=== PATIENT | female | born 1980 | race Caucasian/White ===

== ENCOUNTER 2016-04-25 10:17 | Emergency (ER) | payer SELFPAY ==
[~2016-04-25] VITALS: Ht 152.4 cm; Wt 103.0 kg
[~2016-04-25 10:17] MED LIST: TRAM50 PO
[2016-04-25 10:18] VITALS: BP 150/85; PULSE 92; RESP 20; TEMP 97.9; O2SAT 100
--- NOTE | 2016-04-25 11:25 | PD ---
HPI Chief Complaint: Musculoskeletal Complaint Time Seen by Provider: 11:25 Travel History International Travel<30 days: No Contact w/Intl Traveler<30days: No Traveled to known affect area: No History of Present Illness HPI 35 year-old female presents for evaluation left anterior shoulder pain. Patient states that she has had problems with this in the past but believes she may have slept on it wrong the other day. She woke up yesterday with significant shoulder pain. Pain was exacerbated by abduction. She iced it and took some ibuprofen and felt like it was doing okay but then was woken up suddenly this morning with a severe pain in her left shoulder and felt like she could barely move it secondary to the pain. She is not taking anything for today. Denies any fever or chills. No chest tightness. No difficulty breathing. No alterations in sensation in the distal affected extremity. No other symptoms to report. PFSH Past Medical History Anemia: Yes Arthritis: Yes (L HAND) Anxiety: Yes Diminished Hearing: No : 2 Ovarian Cysts: Yes Past Surgical History Section: Yes (2) Cholecystectomy: Yes Gynecologic Surgery: Yes () Tonsillectomy: Yes Social History Alcohol Use: Yes (OCCASIONALLY) Tobacco Use: Yes Substance Use: No Allergies-Medications (Allergen,Severity, Reaction): Coded Allergies: Benadryl (Verified Allergy, Unknown, 04/25/16) Reported Meds & Prescriptions Reported Meds & Active Scripts Active Mobic (Meloxicam) 15 Mg Tab 15 Mg PO DAILY PRN Ultram (Tramadol HCl) 50 Mg Tab 50 Mg PO Q6 PRN Review of Systems Except as stated in HPI: all other systems reviewed are Neg Physical Exam Narrative GENERAL: Well-nourished, well-developed email patient ambulatory and in no acute distress SKIN: Warm and dry. HEAD: Normocephalic. EYES: No scleral icterus. No injection or drainage. NECK: Supple, trachea midline. No JVD or lymphadenopathy. CARDIOVASCULAR: Regular rate and rhythm without murmurs, gallops, or rubs. RESPIRATORY: Breath sounds equal bilaterally. No accessory muscle use. GASTROINTESTINAL: Abdomen soft, non-tender, nondistended. MUSCULOSKELETAL: No cyanosis, or edema. It is listed to palpation over the anterolateral left shoulder. No obvious deformity. Patient reports pain with passive abduction greater than 60. Patient is unable to abduct greater than 60 actively due to pain. Distal pulses are palpable. Sensation intact distal affected extremities. BACK: Nontender without obvious deformity. No CVA tenderness. Data Data Last Documented VS Vital Signs Date Time Temp Pulse Resp B/P Pulse Ox O2 Delivery O2 Flow Rate FiO2 04/25/16 10:18 97.9 92 20 150/85 100 Room Air Orders Shoulder, Limited(2vws) (04/25/16 ) Ketorolac Inj (Toradol Inj) (04/25/16 11:45) Splint Or Brace Apply/Monitor (04/25/16 12:22) Sling Cradle Arm (04/25/16 ) MDM Medical Decision Making Medical Screen Exam Complete: Yes Emergency Medical Condition: Yes Medical Record Reviewed: Yes Differential Diagnosis Osteoarthritis versus bursitis versus sprain versus strain versus internal derangement Narrative Course 35-year-old female presents to the emergency department for evaluation left shoulder pain. X-ray imaging is without acute bony abnormality. There are degenerative changes. Patient is counseled on care, will be provided a sling for support but also strongly encouraged to do range of motion exercises as reviewed in the ER. She is advised to follow with design specialist and return immediately with any acute worsening of symptoms. Diagnosis Primary Impression: Left anterior shoulder pain Additional Impression: Osteoarthritis Qualified Code: M19.012 - Osteoarthritis of left shoulder, unspecified osteoarthritis type Referrals: Orthopaedic Surgeon Primary Care Physician Patient Instructions: General Instructions, Shoulder Pain (ED) Additional Instructions: Sling for support Range of motion exercises as we discussed Follow-up the primary care provider Seek orthopedic evaluation if symptoms persist. Outpatient MRI may be warranted Return immediately to the emergency department with any acute worsening of symptoms. Med/Other Pt SpecificInfo: Prescription(s) given Scripts Meloxicam (Mobic)15 Mg Tab15 Mg PO DAILY PRN (PAIN SCALE 1 TO 10) #14 TAB Ref 0 Prov:La Barry 04/25/16 Disposition: 01 DISCHARGE HOME Condition: Stable La Barry Apr 25, 2016 11:25
[2016-04-25] MEDS ORDERED: KETOROLAC TROMETHAMINE 60 MG/2 ML (IM) VIAL IM ONE (11:45)
--- NOTE | 2016-04-25 12:27 | RADRPT ---
EXAM DATE/TIME: 04/25/2016 12:01 [facility] COMPARISON: No previous studies available for comparison. INDICATIONS: Left shoulder pain. No known injury. MEDICAL HISTORY: None. SURGICAL HISTORY: None. ENCOUNTER: Initial ACUITY: 2 days PAIN SCORE: 10/10 LOCATION: Left shoulder, humeral head FINDINGS: There are degenerative changes about the shoulder. Alignment is anatomic. Fracture is not appreciated. CONCLUSION: Degenerative changes, negative for fracture. Toro Le MD FACR on April 25, 2016 at 12:22 Board Certified Radiologist. This report was verified electronically.
[2016-04-25] MEDS ORDERED: MOBI15TA PO (12:45)
== END 2016-04-25 14:19 | disposition home or self-care (01) ==
LOC: NEPB 10:17
DX: M19.012 Primary osteoarthritis, left shoulder (principal)
CPT/HCPCS: 73030; 96372; 99283; J1885